=== PATIENT | female | born 1970 | race Hispanic/Latino ===

== ENCOUNTER → 2021-04-02 15:31 | Outpatient (CLI) | payer OTHER, SELFPAY ==
--- NOTE | 2021-04-02 | DI.MRI.S_ITS ---
PROCEDURE: MR LOWER LEG LT WO/W CON INDICATIONS: BONE MASS LEFT TIBIA TECHNIQUE: Noncontrast coronal T1 spin echo and STIR, sagittal T1 spin echo with fat saturation and STIR, axial T1 spin echo and T2 fast spin echo with fat saturation. After the administration of contrast, axial/sagittal/coronal T1 spin echo with fat saturation through the left lower leg . COMPARISON: [facility], CR, XR KNEE ARTHRITIC SERIES BI, 03/04/2021, 12:03. FINDINGS: Image quality: Excellent. Bones: There is a heterogeneously T2 hyperintense and T1 hypointense, slightly lobulated structure adjacent to posterior medial cortex of proximal tibial shaft and measures up to 1.5 x 1.5 x 2.1 cm in size. Slight thinning of adjacent posterior medial cortex of the proximal tibia is seen. No periosteal reaction. No adjacent marrow edema. After contrast infusion, there is heterogeneous contrast enhancement within this structure. No other intraosseous lesion or abnormal intraosseous enhancement. No fracture or dislocation. Soft tissues: No soft tissue masses are visualized. The scanned muscles demonstrate normal overall bulk and internal signal. Subcutaneous tissues appear normal as well. No abnormal soft tissue enhancement. IMPRESSION: 1. Benign-appearing heterogeneously T1 hypointense and T2 hyperintense lesion adjacent to posterior medial cortex of proximal tibial shaft with mild thinning of the cortex measures up to 1.5 x 1.5 x 2.1 cm in size. Heterogeneous contrast enhancement within this mass is seen. No surrounding marrow edema or periosteal reaction. No pathologic fracture. Finding likely represent benign process such as enchondroma. Continued radiographic follow-up is recommended. 2. No other intraosseous lesion or area of abnormal intraosseous enhancement is seen. No fracture or dislocation. 3. No soft tissue mass or fluid collection is seen in left lower leg. No abnormal intramuscular enhancement. Dictated by: Juan J Brown M.D. on 04/03/2021 at 9:12 Approved by: Juan J Brown M.D. on 04/03/2021 at 9:17
== END ==
PROVIDERS: PCP Nurse Practitioner Family; Referring Provider Physician Assistant; Visit Provider Physician Assistant
DX: M89.8X6 Other specified disorders of bone, lower leg (principal)
CPT/HCPCS: 73720; A9579

== ENCOUNTER 2021-10-19 19:42 | Emergency (ER) | payer OTHER, SELFPAY ==
[2021-10-19 19:51] VITALS: BP 127/72; PULSE 89; RESP 20; TEMP 36.2; O2SAT 99; BMI 41.0
--- NOTE | 2021-10-19 21:05 | ED.BACK ---
HPI - Back Pain/Injury General Chief Complaint: Back Pain/Injury Stated Complaint: SEVERE BACKSIDE TORSO PAIN Time Seen by Provider: 10/19/21 21:02 Source: patient Limitations: no limitations History of Present Illness HPI Narrative: 51-year-old female nonsmoker with noncontributory medical history presents with family in the chief complaint of some sharp and stabbing right back pain that became present upon waking today. She denies any obvious trauma or injury. She states it is worse when she moves and improves with rest. She denies any radiation the pain. She denies fever chills nor nausea or vomiting. She denies any urinary complaints such as dysuria, frequency or urgency. She denies any hematuria. She has had no change in bowel habits such as constipation or diarrhea. She denies recent travel. She denies any cough or shortness of breath Related Data Previous Rx's Medication Instructions Recorded cyclobenzaprine 10 mg tablet 10 mg PO TID PRN #14 tab 10/19/21 ketorolac 10 mg tablet 10 mg PO Q6H PRN #14 tab 10/19/21 lidocaine 5 % topical patch 1 patch TOP DAILY #15 each 10/19/21 (Lidoderm) Allergies Allergy/AdvReac Type Severity Reaction Status Date / Time No Known Drug Allergies Allergy Verified 10/19/21 19:51 Review of Systems Review of Systems Narrative: GENERAL: Denies chills, fatigue, malaise, fever, sweats. HEENT: Denies sinus pain, ear pain, sore throat, difficulty swallowing, dizziness. RESPIRATORY: Denies dyspnea, cough, wheezing, hemoptysis, sputum. CARDIOVASCULAR: Denies chest pain, palpitations, orthopnea, edema, GASTROINTESTINAL: Denies nausea, vomiting, abdominal pain, diarrhea, constipation, melena. : Denies dysuria, frequency, incontinence, hematuria, urinary retention. MUSCULOSKELETAL: See HPI SKIN: Denies rash, skin lesions, or other NEUROLOGIC: Denies weakness, headache, numbness, change in speech, confusion, seizures, incoordination. PSYCHIATRIC: No concerning psychosocial issues. 12 point review of systems is negative except for those stated above Patient History Social History Smoking Status: Never smoker Smoking Status: Never smoker Substance Use Type: does not use Exam Narrative Exam Narrative: GENERAL: [51 year old patient appears stated age. Well-developed patient, in mild distress. HEAD: Atraumatic. Normocephalic. EYES: Pupils equal round and reactive. Extraocular motions intact. No scleral icterus. No injection or drainage. ENT: Nose without bleeding, purulent drainage. Throat without erythema, tonsillar hypertrophy or exudate. Airway patent. NECK: Trachea midline. Non tender CARDIOVASCULAR: Regular rate and rhythm without murmurs, gallops, or rubs. RESPIRATORY: Clear to auscultation. Breath sounds equal bilaterally. No wheezes, rales, or rhonchi. GASTROINTESTINAL: Abdomen soft, non-tender, nondistended. EXTREMITIES: No edema or joint tenderness. BACK: Pinpoint region of tenderness in the paraspinal musculature on the right side of her lower back. Skin is evaluated and there is no erythema or bruising nor any rash consistent with shingles. She has no saddle anesthesia. Bilateral lower extremities demonstrate 5/5 strength and intact reflexes. NEURO: AOx3. SKIN: No rash or erythema of visible areas Initial Vital Signs Initial Vital Signs: Vital Signs Temperature 97.2 F L 10/19/21 19:51 Pulse Rate 89 10/19/21 19:51 Respiratory Rate 20 10/19/21 19:51 Blood Pressure 127/72 10/19/21 19:51 Pulse Oximetry 99 10/19/21 19:51 Course Orders Ordered: ED Orders 10/19/21 21:45 XR KUB Stat Discontinued Medications Cyclobenzaprine HCl (Cyclobenzaprine 10 Mg Prepack) 1 bottle [facility] ONE Stop: 10/19/21 21:46 Last Admin: 10/19/21 21:56 Dose: 1 bottle Documented by: YOANNA Cyclobenzaprine HCl (Cyclobenzaprine 10 Mg Prepack) 1 bottle M[facility] SEEINSTR ONE Stop: 10/19/21 23:20 Last Admin: 10/19/21 23:20 Dose: Not Given Documented by: YOANNA Ketorolac Tromethamine (Ketorolac 30 Mg/Ml Vial) 30 mg IM NOW ONE Stop: 10/19/21 21:46 Last Admin: 10/19/21 21:56 Dose: 30 mg Documented by: YOANAN Lidocaine (Lidocaine Patch 1 Each Adh..Patch) 1 each TOP NOW ONE Stop: 10/19/21 21:46 Last Admin: 10/19/21 21:56 Dose: 1 each Documented by: YOANNA Vital Signs Vital signs: Vital Signs - 8 hr 10/19/21 23:27 Pulse Rate 72 Respiratory Rate 18 Blood Pressure 121/66 Pulse Oximetry 99 [facility] - Back Pain/Injury Lab Data Labs: Urine Dip Bedside Urine Glucose Negative Bedside Urine Bilirubin - Negative Bedside Urine Ketone - Negative Urine Specific [place] 1.015 Bedside Urine Occult Blood - Negative Bedside Urine pH 7.0 Bedside Urine Protein - Negative Bedside Urine Urobilinogen - Negative Bedside Urine Nitrite - Negative Bedside Urine Leukocytes - Negative Esterase Imaging Data Abdominal x-ray: Radiologist's Impression: Close KUB X-Ray (Signed) Alireza Lackey - 10/19/21 Lower Extremity MRI (Signed) Juan J Brown - 04/02/21 Launch?[address] [address] XRay Report Signed Patient: Fadumo Lomax MR#: [id number] : 1970 Acct:[id number] Age/Sex: 51 / F Date of Service: 10/19/21 Loc: ED Accession Number: [id number] ?? Procedure: XR KUB Ordering Provider: Landon Jaeger D.O. PROCEDURE:? XR KUB ? INDICATIONS:? R flank pain ? TECHNIQUE:? One view of the abdomen acquired.? ? COMPARISON:? [facility], CR, XR ABDOMEN 1 VIEW, 05/11/2019, 19:07. ? FINDINGS:? ? Surgical changes and devices:? None.? ? Bowel:? Scattered small bowel and colonic gas. No dilated loops of bowel seen. ? Soft tissues:? No suspicious abdominal calcifications.? Small phlebolith in the pelvis is unchanged.? Visualized solid organ contours appear normal in size.? ? Bones:? No suspicious bony lesions.? ? IMPRESSION:? No kidney stones identified. Nonobstructive bowel gas pattern. ? ? Dictated by: Alireza Lackey M.D. on 10/19/2021 at 23:11 ? ? Approved by: Alireza Lackey M.D. on 10/19/2021 at 23:12 ? [facility] Narrative Medical decision making narrative: Multiple etiologies of back pain considered including; Epidural abscess, cauda equina, mass occupying lesion, and other considered, however no red flag findings consistent with neuro surgical emergency are obviously present. Imaging is reassuring along with urine and there is low suspicion of kidney stone or kidney infection. Patient's symptoms improved after above-stated therapies. Return precautions given and questions answered to her apparent satisfaction Discharge Plan Departure Patient Disposition: Home Clinical Impression: Strain of lumbar region Instructions: DI for Back Spasm Activity Restrictions/Additional Instructions: *You have been diagnosed with [right-sided back pain, most likely due to muscle spasm. Your history, physical exam and x-ray are very reassuring. *What to do: *Please continue to take your regular medications as directed. [x ] New medication prescriptions sent to your pharmacy: [[facility] in [place]] [ ] New medication written as a paper prescription [ ] No new medications given *Please follow up with your primary care provider in 2-3 days, call for an appointment. Let them know you were seen in the Emergency Department and that we ask that you be seen in follow up. We will electronically transmit a record of today's note if your PCP is in our system *If you do not have a primary care provider please contact the [facility] Resource line at [phone]. They will ask some questions about your medical history and help get you set up with a doctor in the community. *Return to Emergency Department if you should have any new, worsening or concerning symptoms, such as [fever greater than 101 F, shaking chills, worsening pain, persistent vomiting or other bothersome symptoms] Prescriptions: New cyclobenzaprine 10 mg tablet 10 mg PO TID PRN (Reason: muscle spasm) Qty: 14 0RF ketorolac 10 mg tablet 10 mg PO Q6H PRN (Reason: pain) Qty: 14 0RF lidocaine [Lidoderm] 5 % adhesive patch,medicated 1 patch TOP DAILY Qty: 15 0RF Rx Instructions: leave on most painful area for 12 hrs Referrals: Cesia Rahman ARNP [Primary Care Provider] -
--- NOTE | 2021-10-19 21:45 | DI.RAD.S_ITS ---
PROCEDURE: XR KUB INDICATIONS: R flank pain TECHNIQUE: One view of the abdomen acquired. COMPARISON: [facility], CR, XR ABDOMEN 1 VIEW, 05/11/2019, 19:07. FINDINGS: Surgical changes and devices: None. Bowel: Scattered small bowel and colonic gas. No dilated loops of bowel seen. Soft tissues: No suspicious abdominal calcifications. Small phlebolith in the pelvis is unchanged. Visualized solid organ contours appear normal in size. Bones: No suspicious bony lesions. IMPRESSION: No kidney stones identified. Nonobstructive bowel gas pattern. Dictated by: Alireza Lackey M.D. on 10/19/2021 at 23:11 Approved by: Alireza Lackey M.D. on 10/19/2021 at 23:12
[2021-10-19] MEDS: KETOROLAC 30 MG/ML VIAL IM (21:56)
[2021-10-19] MEDS: CYCLOBENZAPRINE 10 MG PREPACK 1 BOTTLE MISC (21:56)
[2021-10-19] MEDS: LIDOCAINE PATCH 1 EACH ADH..PATCH TOP (21:56)
[2021-10-19 23:27] VITALS: BP 121/66; PULSE 72; RESP 18; O2SAT 99
== END 2021-10-19 23:28 | disposition home or self-care (01) ==
PROVIDERS: Emergency Provider Emergency Medicine; PCP Nurse Practitioner Family
DX: S39.012A Strain of muscle, fascia and tendon of lower back, initial encounter (principal); X58.XXXA Exposure to other specified factors, initial encounter
CPT/HCPCS: 74018; 81003; 99283; 99284; J1885

== ENCOUNTER 2024-10-16 18:09 | Emergency (ER) | payer OTHER, SELFPAY ==
[2024-10-16] VITALS (7 sets, daily range): BP systolic 116–137; BP diastolic 48–80; PULSE 65–83; RESP 16–19; TEMP 36.5; O2SAT 97–99; BMI 41.3
--- NOTE | 2024-10-16 18:20 | EKG_ITS ---
[address] [id number] [address] [address] Test Date: 2024-10-16 Pat Name: Fadumo Lomax Department: Room: Gender: Female [employer]: : 1970 Requested By: Order Number: [id number] Reading MD: Jadon Michaud MD Measurements Intervals [place] Rate: 80 P: 18 WA: 174 QRS: 24 QRSD: 86 T: 26 QT: 376 QTc: 433 Interpretive Statements Normal sinus rhythm Electronically Signed On 10-17-2024 10:35:49 PST by Jadon Michaud MD
--- NOTE | 2024-10-16 18:20 | DI.RAD.S_ITS ---
PROCEDURE: XR CHEST 1V INDICATIONS: chest pain TECHNIQUE: One view of the chest was acquired. COMPARISON: None. FINDINGS: Surgical changes and devices: None. Lungs and pleura: Lungs are clear. No pleural effusions or pneumothorax. Mediastinum: Mediastinal contours appear normal. Heart size is normal. Bones and chest wall: No suspicious bony lesions. Overlying soft tissues appear unremarkable. IMPRESSION: No acute cardiopulmonary abnormality is seen. Dictated by: Salvador Pabon M.D. on 10/16/2024 at 18:36 Approved by: Salvador Pabon M.D. on 10/16/2024 at 18:39
[2024-10-16 18:42] LABS: Add Manual Diff / Slide Review NO; Basophils Absolute Auto 100 /uL (0-100); Basophils Percent Auto 1.2 % (0-2); Eosinophils Absolute Auto 200 /uL (0-450); Hematocrit 42.3 % (36-46); Hemoglobin 13.9 g/dL (12.0-16.0); Lymphocytes Absolute Auto 2500 /uL (1100-4500); Lymphocytes Percent Auto 29.5 % (25-40); Mean Corpuscular HGB Conc 32.9 % (30-36); Mean Corpuscular Hemoglobin 26.8 PG (26-34); Mean Corpuscular Volume 81.5 fL (80-100); Monocytes Absolute Auto 600 /uL (0-900); Monocytes Percent Auto 7.1 % (3-14); Neutrophils Absolute Auto 5200 /uL (1500-7000); Neutrophils Percent Auto 60.2 % (50-75); Platelet Count 301 X10^3/uL (150-400); Red Blood Cell Count 5.18 X10^6/uL (4.0-5.2); Red Cell Distribution Width 13.6 % (11.6-14.8); White Blood Cell Count 8.6 X10^3/uL (4.5-11.0)
[2024-10-16 18:50] LABS: PTT Partial Thromboplastin Tim 39 SECONDS (25.1-36.5)
[2024-10-16 18:52] LABS: Alanine Aminotransferase 63 IU/L (<35); Albumin 4.5 g/dL (3.5-5.0); Albumin Globulin Ratio 1.3 (1.0-2.8); Alkaline Phosphatase 63 U/L (38-126); Aspartate Aminotransferase 44 IU/L (14-36); BUN Creatinine Ratio 33.3 (6-22); Bilirubin Total 0.4 mg/dL (0.2-1.3); Blood Urea Nitrogen 20 mg/dL (7-17); Calcium 9.7 mg/dL (8.4-10.2); Carbon Dioxide 27 mmol/L (22-32); Chloride 104 mmol/L (98-107); Creatine Kinase 64 U/L (30-135); Estimated Glomerular Filt Rate > 60 mL/min (>60); Globulin 3.6 g/dL (1.7-4.1); Glucose 107 mg/dL (70-100); HEMOLYSIS 40 (0-50); Lipase 87 U/L (23-300); Magnesium 1.9 mg/dL (1.6-2.3); Potassium 3.8 mmol/L (3.4-5.1); Sodium 138 mmol/L (137-145); Total Protein 8.1 g/dL (6.3-8.2)
[2024-10-16 19:03] LABS: NT-proBNP (BNP-Adult 18+) < 20 pg/mL (<125); Troponin I < 0.012 ng/mL (0.01-0.034)
--- NOTE | 2024-10-16 20:30 | ED.CHESTPAIN ---
HPI - Chest Pain General Chief Complaint: Chest Pain Stated Complaint: chest px sent by [facility] Time Seen by Provider: 10/16/24 19:47 Source: patient Mode of arrival: Ambulatory Limitations: no limitations History of Present Illness HPI narrative: 54yoF with PMH HLD presents for 1 month of left-sided chest pain. Pain is sharp, intermittent, does not radiate. Patient can not identify what makes the pain come or go. She has an appointment coming up in 1 week with her primary care doctor, but when the pain happened again today she decided to come in for evaluation. She initially went to the walk-in clinic, and was then referred to the ER for evaluation. Denies family history of heart disease, denies history of diabetes or smoking. Related Data Home Medications Medication Instructions Recorded Confirmed No Known Home Medications 10/16/24 10/16/24 Allergies Allergy/AdvReac Type Severity Reaction Status Date / Time No Known Drug Allergies Allergy Verified 10/16/24 18:08 Patient History Social History Smoking Status: Never smoker Smoking Status: Never smoker Substance Use Type: does not use Exam Initial Vital Signs Initial Vital Signs: Vital Signs Temperature 97.7 F 10/16/24 18:15 Pulse Rate 83 10/16/24 18:15 Respiratory Rate 16 10/16/24 18:15 Blood Pressure 137/80 10/16/24 18:15 Pulse Oximetry 97 10/16/24 18:15 Oxygen Delivery Method Room Air 10/16/24 18:15 Const: Awake, alert, no acute distress, nontoxic appearing Cardiac: regular rate, regular rhythm Chest: generalized tenderness along L chest wall, no crepitus RESP: unlabored, clear bilaterally, no wheezing Skin: Warm, Dry, intact, no rashes Neuro: AO x3, CN II-XII grossly intact, moves all extremities Course Orders Ordered: ED Orders 10/16/24 20:26 Trop I [Troponin I] Stat Vital Signs Vital signs: Vital Signs - 8 hr 10/16/24 20:30 10/16/24 21:00 10/16/24 21:31 Pulse Rate 71 68 65 Respiratory Rate 16 19 17 Blood Pressure 116/70 117/68 118/63 Pulse Oximetry 98 98 99 Oxygen Delivery Method Room Air 10/16/24 21:42 Pulse Rate 75 Respiratory Rate 16 Blood Pressure 124/79 Pulse Oximetry 98 Oxygen Delivery Method Room Air MDM - Chest Pain Differential Diagnosis Differential diagnosis: Likely atypical chest pain, costochondritis and chest pain Lab Data 10/16/24 18:30 10/16/24 18:30 Labs: Lab Results 10/16/24 10/16/24 Range/Units 18:30 20:26 WBC 8.6 (4.5-11.0) X10^3/uL RBC 5.18 (4.0-5.2) X10^6/uL Hgb 13.9 (12.0-16.0) g/dL Hct 42.3 (36-46) % MCV 81.5 (80-100) fL MCH 26.8 (26-34) PG MCHC 32.9 (30-36) % RDW 13.6 (11.6-14.8) % Plt Count 301 (150-400) X10^3/uL Neut % (Auto) 60.2 (50-75) % Lymph % (Auto) 29.5 (25-40) % [place] % (Auto) 7.1 (3-14) % Eos % (Auto) 2.0 (2-4) % Baso % (Auto) 1.2 (0-2) % Neut # (Auto) 5200 (0003-9546) /uL Lymph # (Auto) 2500 (2873-6300) /uL [place] # (Auto) 600 (0-900) /uL Eos # (Auto) 200 (0-450) /uL Baso # (Auto) 100 (0-100) /uL PT 11.0 (9.4-12.5) SECONDS INR 1.0 (0.9-1.3) APTT 39 H (25.1-36.5) SECONDS Sodium 138 (137-145) mmol/L Potassium 3.8 (3.4-5.1) mmol/L Chloride 104 (98-107) mmol/L Carbon Dioxide 27 (22-32) mmol/L BUN 20 H (7-17) mg/dL Creatinine 0.60 (0.52-1.04) mg/dL Estimated GFR > 60 (>60) mL/min BUN/Creatinine Ratio 33.3 H (6-22) Glucose 107 H (70-100) mg/dL Calcium 9.7 (8.4-10.2) mg/dL Magnesium 1.9 (1.6-2.3) mg/dL Total Bilirubin 0.4 (0.2-1.3) mg/dL AST 44 H (14-36) IU/L ALT 63 H (<35) IU/L Alkaline Phosphatase 63 (38-126) U/L Total Creatine Kinase 64 (30-135) U/L Troponin I < 0.012 < 0.012 (0.01-0.034) ng/mL NT-Pro-B Natriuret Pep < 20 (<125) pg/mL Total Protein 8.1 (6.3-8.2) g/dL Albumin 4.5 (3.5-5.0) g/dL Globulin 3.6 (1.7-4.1) g/dL Albumin/Globulin Ratio 1.3 (1.0-2.8) Lipase 87 (23-300) U/L Imaging Data Chest x-ray: Radiologist's Impression: PROCEDURE: XR CHEST 1V INDICATIONS: chest pain TECHNIQUE: One view of the chest was acquired. COMPARISON: None. FINDINGS: Surgical changes and devices: None. Lungs and pleura: Lungs are clear. No pleural effusions or pneumothorax. Mediastinum: Mediastinal contours appear normal. Heart size is normal. Bones and chest wall: No suspicious bony lesions. Overlying soft tissues appear unremarkable. IMPRESSION: No acute cardiopulmonary abnormality is seen. Dictated by: Salvador Pabon M.D. on 10/16/2024 at 18:36 Approved by: Salvador Pabon M.D. on 10/16/2024 at 18:39 ECG Data Attestation: I personally reviewed and interpreted this ECG as follows: Prior ECG tracings: not available for review Interpretation: Normal sinus rhythm at 80 beats per minute. Normal LA. No ST T wave changes, no STEMI MDM Narrative Medical decision making narrative: One month of intermittent left-sided chest pains. Currently pain-free, however patient states that she has felt intermittent ?zaps? while in the ED. EKG normal sinus rhythm. Heart score 2 based on age and risk factors of hyperlipidemia, obesity. Troponins negative x2. Chest x-ray negative for acute findings. Unknown cause of chest pain. Unlikely to be ACS at this time. Patient counseled on lab and imaging findings. Recommended that she keep her PCP appointment on the 10th as scheduled. ED return precautions discussed at bedside. Discharge Plan Departure Patient Disposition: Home Clinical Impression: Atypical chest pain Instructions: DI for Atypical Chest Pain Activity Restrictions/Additional Instructions: Your EKG, Chest X ray, and lab work did not show any signs of active or ongoing heart attack. I do not know the cause of your chest pains but I do recommend that you keep your follow up appointment on the 10th with your primary care doctor as scheduled. Take Tylenol and ibuprofen as needed for discomfort at home. Do gentle stretching exercises to help stretch out your chest wall. If you have worsening pains or any other concerning symptoms please feel free to return to the emergency department for repeat evaluation. Prescriptions: No Action No Known Home Medications Referrals: Cesia Rahman ARNP [Primary Care Provider] - Stand Alone Forms: Patient Portal/API/Survey
[2024-10-16 21:08] LABS: Troponin I < 0.012 ng/mL (0.01-0.034)
== END 2024-10-16 21:43 | disposition home or self-care (01) ==
PROVIDERS: Emergency Provider Emergency Medicine; PCP Nurse Practitioner Family
DX: R07.89 Other chest pain (principal); E78.5 Hyperlipidemia, unspecified; E66.9 Obesity, unspecified; Z68.41 Body mass index [BMI] 40.0-44.9, adult
CPT/HCPCS: 36415; 71045; 80053; 82550; 83690; 83735; 83880; 84484; 85025; 85610; 85730; 93005; 93010; 99284